=== PATIENT | male | born 1965 | race Caucasian/White ===

== ENCOUNTER 2019-12-31 14:00 | Emergency (ER) | payer MEDICAID, SELFPAY ==
[~2019-12-31] VITALS: Ht 165.1 cm; Wt 69.1 kg
[2019-12-31 14:32] VITALS: BP 143/73
== END 2019-12-31 16:11 | disposition home or self-care (01) ==
LOC: ED 15:50
DX: S90.32XA Contusion of left foot, initial encounter (principal); M79.89 Other specified soft tissue disorders; X58.XXXA Exposure to other specified factors, initial encounter; Y93.89 Activity, other specified; Y92.098 Other place in other non-institutional residence as the place of occurrence of the external cause; Y99.8 Other external cause status
CPT/HCPCS: 99283